=== PATIENT | male | born 1945 | race Caucasian/White ===

== ENCOUNTER 2021-03-25 10:40 | Emergency (ER) | payer BC ==
[2021-03-25 11:45] LABS: BUN/CREATININE RATIO 15 (0-10)
[2021-03-25] MEDS ORDERED: HYDROCHLOROTH12.5 MG PO (12:30)
== END 2021-03-25 12:55 | disposition home or self-care (01) ==
LOC: ER1 10:40
PROVIDERS: Student in an Organized Health Care Education/Training Program
DX: I10 Essential (primary) hypertension (principal)
CPT/HCPCS: 80053; 93005; 99283

== ENCOUNTER → 2021-05-20 | Outpatient (CLI) | payer BC ==
[~2021-05-20] MED LIST: HYDROCHLOROTH12.5 MG PO
== END ==
LOC: HEART 5 13:45
DX: R94.31 Abnormal electrocardiogram [ECG] [EKG] (principal); I10 Essential (primary) hypertension; I08.1 Rheumatic disorders of both mitral and tricuspid valves; I27.20 Pulmonary hypertension, unspecified
CPT/HCPCS: 93306